=== PATIENT | male | born 1960 | race Caucasian/White ===

== ENCOUNTER 2020-05-27 07:39 | Outpatient (CLI) | payer OTHER, SELFPAY ==
--- NOTE | ~2020-05-27 | CT_ITS ---
EXAMINATION:CT lung screening DATE: 05/27/2020 08:16 INDICATION: Personal history of tobacco dependence. Current smoker. TECHNIQUE: Computed tomography (CT) of the chest was performed without intravenous contrast. Automate d exposure control and iterative reconstruction technique were employed. The dose-length product (DLP ) was 262.17 mGy-cm. COMPARISON: Chest 2 views 03/24/2014 FINDINGS: There is mild emphysema. There is minimal atelectasis on the left. No pleural effusion. The heart size is normal. There are coronary artery calcifications. No pericardial effusion. There are m asses in the adrenal glands measuring up to 1.9 cm on the right measuring low-attenuation, consistent with adenomas. There is mild thoracic spondylosis. There is mild chronic anterior wedging of T7 and T8 vertebral bodies. IMPRESSION: 1. Lung-RADS category 1: Negative. Continue annual screening with noncontrast low-dose chest CT in 12 months. Reviewed, dictated and finalized at location A. [employer] IMPRESSION: 1. Lung-RADS category 1: Negative. Continue annual screening with noncontrast l ow-dose chest CT in 12 months.
== END 2020-05-27 07:40 | disposition home or self-care (01) ==
LOC: ANHIMG 07:44
PROVIDERS: PCP Internal Medicine; Visit Provider Internal Medicine
DX: F17.210 Nicotine dependence, cigarettes, uncomplicated (principal)
CPT/HCPCS: 71271